=== PATIENT | female | born 1950 | race African-American/Black ===

== ENCOUNTER 2018-10-23 08:25 | Emergency (ER) | payer OTHER ==
[~2018-10-23] VITALS: Ht 167.6 cm; Wt 73.9 kg
[~2018-10-23 08:25] MED LIST: ASPI81EC98 PO; BENA20TA PO; HYDR-2729 PO; METO50TE2 PO; VALS320T2 PO
[2018-10-23 08:40] VITALS: BP 176/10
[2018-10-23] MEDS ORDERED: LIDOCAINE VISCOUS 2% 20 ML UDC PO ONE (08:50)
[2018-10-23 09:00] VITALS: BP 164/97
== END 2018-10-23 09:00 | disposition home or self-care (01) ==
LOC: MED 08:25
DX: G89.29 Other chronic pain (principal); K08.89 Other specified disorders of teeth and supporting structures; I10 Essential (primary) hypertension; E78.5 Hyperlipidemia, unspecified; Z79.82 Long term (current) use of aspirin; Z79.899 Other long term (current) drug therapy; Z76.0 Encounter for issue of repeat prescription
CPT/HCPCS: 99283

== ENCOUNTER 2018-12-21 13:50 | Emergency (ER) | payer OTHER ==
[~2018-12-21] VITALS: Ht 167.6 cm; Wt 72.1 kg
[2018-12-21 14:02] VITALS: BP 165/86
--- NOTE | 2018-12-21 14:39 | NUR ---
PATIENT PRESENTS TO ED WITH PT STATES HER PMD INSTRUCTED HER TO COME TO ER FOR FURTHER EVAL 2 TO CONTINUOUS PAIN---PT IS OUT OF NORCO AND REQUIRES A REFILL AMBULATORY WITH STEADY GAIT, DENIES RECENT INJURY . DENIES N/V/D; SKIN IS PINK/WARM/DRY; AAOX4 WITH EVEN AND STEADY GAIT; LUNGS CLEAR BL; HR EVEN AND REGULAR; PT DENIES ANY FEVER, CP, SOB, OR COUGH AT THIS TIME; PATIENT STATES PAIN OF 10/10 AT THIS TIME; VSS; PATIENT POSITIONED FOR COMFORT; HOB ELEVATED; BEDRAILS UP X2; BED DOWN. ER MD MADE AWARE OF PT STATUS.
[2018-12-21] MEDS ORDERED: KETOROLAC 60 MG/2 ML VIAL IM ONE (14:40)
[2018-12-21] MEDS ORDERED: DEXAMETHASONE 10 MG/ML VIAL IM ONE (14:40)
[2018-12-21 15:41] VITALS: BP 137/82
--- NOTE | 2018-12-21 15:41 | NUR ---
Note dungone in EDM - 12/21/18 at 1541 by PIOTR Patient discharged with v/s stable. Written and verbal after care instructions given and explained. Patient alert, oriented and verbalized understanding of instructions. [g ED.DCMODE] with [g ED.D/CMODE]. All questions addressed prior to discharge. ID band removed. Patient advised to follow up with PMD. Rx of [] given. Patient educated on indication of medication including possible reaction and side effects. Opportunity to ask questions provided and answered.
== END 2018-12-21 15:41 | disposition home or self-care (01) ==
LOC: MED 13:50
DX: M13.812 Other specified arthritis, left shoulder (principal); M13.811 Other specified arthritis, right shoulder; M13.852 Other specified arthritis, left hip; M13.851 Other specified arthritis, right hip; I10 Essential (primary) hypertension; Z79.1 Long term (current) use of non-steroidal anti-inflammatories (NSAID)
CPT/HCPCS: 96372; 99283; J1100; J1885

== ENCOUNTER 2019-04-27 16:53 | Emergency (ER) | payer OTHER ==
[~2019-04-27] VITALS: Ht 170.2 cm; Wt 73.9 kg
[2019-04-27 17:05] VITALS: BP 160/73
--- NOTE | 2019-04-27 17:12 | NUR ---
PT USES WALKER TO AMB TO ER LOBBY. PT AA0X4. RR EVEN AND UNLABORED.
--- NOTE | 2019-04-27 17:20 | NUR ---
PT BIB SELF IWTH C/O WORSENING HIP PAIN RADIATING TO BACK.GETS WORSE WHILE SHE WALKS AND U[HAM BENDING. DENIES INJURY. PAIN 07/28. PT AA0X4. AMBULATES WITH HELP OF THE WALKER. STATES WAS BEDBOUND BEFORE DUE TO CHRONIC ARTHIRITS PAIN. PMH- ARTHRITIS, HTN RX- CANT RECALL NAMES. STATES MEDS HAVE CHANGES SINCE LAST VISIT
--- NOTE | 2019-04-27 17:21 | NUR ---
PATIENT AMBULATED TO ER BED 2
[2019-04-27] MEDS ORDERED: MORPHINE SULFATE 4 MG/ML SYR IM ONE (17:55)
[2019-04-27] MEDS ORDERED: KETOROLAC 30 MG/ML VIAL IM ONE (17:55)
[2019-04-27 18:30] VITALS: BP 142/67
--- NOTE | 2019-04-27 18:30 | NUR ---
Patient discharged with v/s stable. Written and verbal after care instructions given and explained. Patient alert, oriented and verbalized understanding of instructions. Ambulatory with steady gait. All questions addressed prior to discharge. ID band removed. Patient advised to follow up with PMD. Rx of CLINORIL given. Patient educated on indication of medication including possible reaction and side effects. Opportunity to ask questions provided and answered.
== END 2019-04-27 18:30 | disposition home or self-care (01) ==
LOC: MED 16:53
DX: M16.0 Bilateral primary osteoarthritis of hip (principal); Z76.0 Encounter for issue of repeat prescription; I10 Essential (primary) hypertension; Z79.82 Long term (current) use of aspirin; Z79.899 Other long term (current) drug therapy
CPT/HCPCS: 96372; 99283; J1885; J2270

== ENCOUNTER 2019-05-22 08:38 | Emergency (ER) | payer OTHER ==
[~2019-05-22] VITALS: Ht 170.2 cm; Wt 72.6 kg
[2019-05-22 08:49] VITALS: BP 170/83
[2019-05-22] MEDS ORDERED: KETOROLAC 30 MG/ML VIAL IM ONE (09:40)
[2019-05-22] MEDS ORDERED: predniSONE 20 MG TAB PO ONE (09:40)
[2019-05-22 10:12] VITALS: BP 149/65
== END 2019-05-22 10:12 | disposition home or self-care (01) ==
LOC: MED 08:38
DX: M19.90 Unspecified osteoarthritis, unspecified site (principal); I10 Essential (primary) hypertension; Z79.899 Other long term (current) drug therapy; Z79.82 Long term (current) use of aspirin
CPT/HCPCS: 96372; 99283; J1885; J7512

== ENCOUNTER 2020-07-17 09:24 | Emergency (ER) | payer OTHER ==
[~2020-07-17] VITALS: Ht 170.2 cm; Wt 72.6 kg
[2020-07-17 09:29] VITALS: BP 183/103
--- NOTE | 2020-07-17 09:50 | NUR ---
70 YEAR OLD FEMALE COMPLAINS OF CHRONIC RIGHT LEG AND HIP PAIN. PT STATES THAT IT FEELS WORSE TODAY AND THE PAIN GOES AWAY WHEN SHE GETS HER SHOT FOR PAIN MEDICATION. PT STATES MORE DIFFICULTY WALKING WITH WALKER DUE TO PAIN. PT AOX4, BREATHING EVEN AND UNLABORED, SKIN WARM AND DRY. BED IN LOWEST POSITION, LOCKED, BED RAIL UPX1. PMH - HTN ALLERGIES - NKA
[2020-07-17] MEDS ORDERED: predniSONE 20 MG TAB PO ONE (09:55)
[2020-07-17] MEDS ORDERED: KETOROLAC 60 MG/2 ML VIAL IM ONE (09:55)
--- NOTE | 2020-07-17 10:50 | NUR ---
PT ALERT AND AWAKE, BREATHING EVEN AND UNLABORED
[2020-07-17 11:50] VITALS: BP 192/91
--- NOTE | 2020-07-17 11:50 | NUR ---
Patient discharged with v/s stable. Written and verbal after care instructions about arthritis given and explained. Patient alert, oriented and verbalized understanding of instructions. Ambulatory with steady gait. All questions addressed prior to discharge. ID band removed. Patient advised to follow up with PMD. Rx of medrol and ibuprofen given. Patient educated on indication of medication including possible reaction and side effects. Opportunity to ask questions provided and answered.
== END 2020-07-17 11:50 | disposition home or self-care (01) ==
LOC: MED 09:24
DX: M19.90 Unspecified osteoarthritis, unspecified site (principal); I10 Essential (primary) hypertension; Z79.899 Other long term (current) drug therapy
CPT/HCPCS: 96372; 99283; J1885; J7512

== ENCOUNTER 2021-02-28 08:25 | Emergency (ER) | payer OTHER ==
[~2021-02-28] VITALS: Ht 170.2 cm; Wt 65.3 kg
[~2021-02-28 08:25] MED LIST changes: +RIVA20TA PO; +SULF-58 PO
[2021-02-28 08:27] VITALS: BP 192/61
--- NOTE | 2021-02-28 08:32 | NUR ---
Patient ambulated to bed 12 with steady/even gait.
--- NOTE | 2021-02-28 08:40 | NUR ---
71 y/o F brought in from home with c/c bilateral groin pain. Patient reports arthritis flare-up 2 weeks ago, worsened this morning when she woke up. Patient reports the pain worsens with cold weather and ambulating. Patient presents A&Ox4, ambulatory with walker, and reports pain 10/10, sharp/intermittent, non-radiating. Patient also repotrs associated bilateral hip pain. Patient states she normally takes [place] 10mg, however, ran out of her prescription 1 week ago. Patient denies any medications or treatmen tprior to arrival. Pt denies fever, chills, SOB, chest pain, other extremity pain. Pt placed onto cardiac/vascular sonographer; respirations even/unlabored. Bed locked in lowest position, side rails x 1, call light in reach. Dyer provided. PMH: Arthritis, HTN, HLD Meds: Xarelto, lisinopril, atenolol, lipitor NKA Sx: Denies
--- NOTE | 2021-02-28 08:50 | NUR ---
Dr. Brody is evaluating patienta t bedside.
[2021-02-28] MEDS ORDERED: KETOROLAC 15 MG/ML VIAL IM ONE (08:55)
[2021-02-28] MEDS ORDERED: HYDROcodone/APAP 10/325 MG 1 TAB TAB PO ONE (08:55)
--- NOTE | 2021-02-28 09:33 | NUR ---
Patient reports positive relief after medication administration; reports pain 0/10 at this time. States she is ready to go. Dr. Brody made aware.
[2021-02-28 09:37] VITALS: BP 176/67
--- NOTE | 2021-02-28 09:37 | NUR ---
Patient discharged with v/s stable. Written and verbal after care instructions given and explained. Patient verbalized understanding. Ambulatory by walker with steady gait. All questions addressed prior to discharge. Advised to follow up with PMD.
== END 2021-02-28 09:37 | disposition home or self-care (01) ==
LOC: MED 08:25
DX: M25.551 Pain in right hip (principal); M25.552 Pain in left hip; I10 Essential (primary) hypertension; Z79.899 Other long term (current) drug therapy
CPT/HCPCS: 96372; 99283; J1885

== ENCOUNTER 2021-03-04 09:29 | Emergency (ER) | payer OTHER ==
[~2021-03-04] VITALS: Ht 170.2 cm; Wt 65.3 kg
[2021-03-04 09:36] VITALS: BP 215/92
[2021-03-04] MEDS ORDERED: HYDROcodone/APAP 10/325 MG 1 TAB TAB PO SCH (09:55)
[2021-03-04] MEDS ORDERED: KETOROLAC 15 MG/ML VIAL IM ONE (09:55)
[2021-03-04 11:33] VITALS: BP 170/81
== END 2021-03-04 11:27 | disposition home or self-care (01) ==
LOC: MED 09:29
DX: G89.29 Other chronic pain (principal); M13.852 Other specified arthritis, left hip; M13.851 Other specified arthritis, right hip; E78.5 Hyperlipidemia, unspecified; I10 Essential (primary) hypertension; Z79.899 Other long term (current) drug therapy; Z79.82 Long term (current) use of aspirin
CPT/HCPCS: 73521; 96372; 99283; J1885

== ENCOUNTER 2021-03-08 20:39 | Emergency (ER) | payer OTHER ==
[~2021-03-08] VITALS: Ht 170.2 cm; Wt 60.8 kg
[2021-03-08 20:46] VITALS: BP 142/79
--- NOTE | 2021-03-08 21:01 | NUR ---
AMBULATORY TO RESTROOM
--- NOTE | 2021-03-08 21:10 | NUR ---
71/F BIB SELF FOR C/O RUQ PAIN X 1 DAY S/P "EATING SOMETHING BAD." DENIES N/V/D, PAINFUL URINATION. STATES FEELS CONSTIPATED. UPON ASSESSMENT PT AAOX4, AMBULATORY, ABLE TO MAKE NEEDS KNOWN. ABDOMEN SOFT AND NON-TENDER. SKIN IS WARM/DRY/INTACT. SAFETY MEASURES IN PLACE. WILL CONTINUE TO MONITOR. PMH: HTN NKA
--- NOTE | 2021-03-08 21:15 | NUR ---
DR. MCCAULEY AT BEDSIDE EXAMINING PATIENT
--- NOTE | 2021-03-08 21:35 | NUR ---
US AT BEDSIDE
[2021-03-08] MEDS: ONDANSETRON 4 MG/2 ML VIAL IVP ONE (21:43)
[2021-03-08] MEDS: MORPHINE SULFATE 4 MG/ML SYR IVP ONE (21:43)
--- NOTE | 2021-03-08 21:45 | NUR ---
URINE SAMPLE COLLECTED AND SENT TO LAB
[2021-03-08 21:52] LABS: APPEARANCE,URINE CLEAR (CLEAR); BILIRUBIN,URINE NEGATIVE (NEGATIVE); BLOOD, URINE TRACE-I (NEGATIVE); COLOR,URINE YELLOW (YELLOW); LEUKOCYTE ESTERASE ,URINE NEGATIVE (NEGATIVE); NITRITE, URINE NEGATIVE (NEGATIVE); UGLUCOSE NEGATIVE (NEGATIVE)
[2021-03-08 22:06] LABS: RBC,URINE 0-5 /HPF (0-5); WBC,URINE 0-5 /HPF (0-5)
[2021-03-08 22:11] LABS: BASOPHILS # (AUTO) 0.1 K/uL (0.00-0.22); EOSINOPHILS # (AUTO) 0.3 K/uL (0-0.4); EOSINOPHILS % (AUTO) 3.7 % (0.0-4.0); HEMOGLOBIN 11.7 g/dL (12.0-16.0); LYMPHOCYTES # (AUTO) 0.8 K/uL (2.5-16.5); LYMPHOCYTES % (AUTO) 10.6 % (20.5-51.1); MEAN CORPUSCULAR HEMOGLOBIN 29 pg (27-31); MEAN CORPUSCULAR HGB CONC 33 g/dL (33-37); MEAN CORPUSCULAR VOLUME 89.7 fL (80-94); MONOCYTES # (AUTO) 0.6 K/uL (0.8-1.0); NEUTROPHILS # (AUTO) 5.9 K/uL (1.8-7.7); NEUTROPHILS % (AUTO) 76.7 % (42.2-75.2); PLATELET COUNT (AUTO) 302 K/uL (140-450); RED BLOOD CELL COUNT(AUTO) 4.01 MIL/uL (4.20-5.40); RED CELL DISTRIBUTION WIDTH 15.8 % (11.6-13.7); WHITE BLOOD COUNT (AUTO) 7.7 K/uL (4.8-10.8)
[2021-03-08 22:20] VITALS: BP 141/64
--- NOTE | 2021-03-08 22:21 | NUR ---
PT RESTING. VITAL SIGNS STABLE AT THIS TIME. PT VERBALIZED 2/10 ABDOMINAL PAIN AT THIS TIME. NO REQUESTS MADE, PT KEPT COMFORTABLE, SAFETY MEASURES IN PLACE, WILL CONTINUE TO MONITOR.
[2021-03-08 22:24] LABS: ALBUMIN 3.6 g/dL (3.4-5.0); ANION GAP 13.5 (8-16); ASPARTATE AMINOTRANSFERASE 19 U/L (15-37); CARBON DIOXIDE 28.5 mmol/L (21-32); CHLORIDE 102 mmol/L (98-107); CREATININE 2.4 mg/dL (0.6-1.3); GLUCOSE 113 mg/dL (74-106); LIPASE 37 U/L (73-393); SODIUM SERUM 140 mmol/L (136-145); TOTAL BILIRUBIN 1.1 mg/dL (0.0-1.0); UREA NITROGEN, BLOOD 35 mg/dL (7-18)
[2021-03-08] MEDS ORDERED: ONDA8TAB87 PO (22:37)
[2021-03-08] MEDS ORDERED: IBUP-2213 PO (22:37)
[2021-03-08] MEDS ORDERED: ACET-8386 PO (22:37)
--- NOTE | 2021-03-08 22:55 | NUR ---
Patient discharged with v/s stable. Written and verbal after care instructions given and explained. Patient alert, oriented and verbalized understanding of instructions. Ambulatory with to car. All questions addressed prior to discharge. ID band removed AND IV ACCESS REMOVED. Patient advised to follow up with PMD. Rx of NORCO, MOTRIN, ZOFRAN given. Patient educated on indication of medication including possible reaction and side effects. Opportunity to ask questions provided and answered.
== END 2021-03-08 22:55 | disposition home or self-care (01) ==
LOC: MED 20:39
DX: R10.11 Right upper quadrant pain (principal); I10 Essential (primary) hypertension; Z79.899 Other long term (current) drug therapy
CPT/HCPCS: 36415; 76705; 80053; 81001; 83690; 85025; 96374; 96375; 99284; J2270; J2405

== ENCOUNTER 2021-03-12 19:10 | Inpatient (IN) | payer OTHER, SELFPAY ==
[~2021-03-12] VITALS: Ht 170.2 cm; Wt 58.5 kg
[~2021-03-12 19:10] MED LIST changes: +ACET-8386 PO; +IBUP-2213 PO; +ONDA8TAB87 PO
[2021-03-12 19:39] VITALS: BP 140/93
[2021-03-12] MEDS ORDERED: NACL 0.9% 1,000 ML IV ONE (20:35)
[2021-03-12] MEDS ORDERED: ONDANSETRON 4 MG/2 ML VIAL IVP ONE (20:35)
[2021-03-12] MEDS ORDERED: MORPHINE SULFATE 4 MG/ML SYR IVP ONE (20:35)
[2021-03-12 21:08] LABS: BASOPHILS # (AUTO) 0.1 K/uL (0.00-0.22); BASOPHILS % (AUTO) 0.6 % (0.0-2.0); EOSINOPHILS % (AUTO) 0.2 % (0.0-4.0); HEMATOCRIT 36.6 % (36-48); HEMOGLOBIN 12.2 g/dL (12.0-16.0); LYMPHOCYTES # (AUTO) 0.9 K/uL (2.5-16.5); LYMPHOCYTES % (AUTO) 8.5 % (20.5-51.1); MEAN CORPUSCULAR HEMOGLOBIN 29 pg (27-31); MEAN CORPUSCULAR HGB CONC 33 g/dL (33-37); MEAN CORPUSCULAR VOLUME 88.1 fL (80-94); MONOCYTES # (AUTO) 1.2 K/uL (0.8-1.0); MONOCYTES % (AUTO) 11.1 % (1.7-9.3); NEUTROPHILS # (AUTO) 8.6 K/uL (1.8-7.7); NEUTROPHILS % (AUTO) 79.6 % (42.2-75.2); PLATELET COUNT (AUTO) 368 K/uL (140-450); RED BLOOD CELL COUNT(AUTO) 4.16 MIL/uL (4.20-5.40); RED CELL DISTRIBUTION WIDTH 15.9 % (11.6-13.7); WHITE BLOOD COUNT (AUTO) 10.8 K/uL (4.8-10.8)
[2021-03-12 21:21] LABS: APPEARANCE,URINE CLEAR (CLEAR); BILIRUBIN,URINE 2+ (NEGATIVE); BLOOD, URINE TRACE-I (NEGATIVE); COLOR,URINE YELLOW (YELLOW); LEUKOCYTE ESTERASE ,URINE NEGATIVE (NEGATIVE); NITRITE, URINE NEGATIVE (NEGATIVE); RBC,URINE 0-5 /HPF (0-5); UGLUCOSE NEGATIVE (NEGATIVE)
[2021-03-12] MEDS ORDERED: LORazepam 2 MG/ML VIAL IVP ONE (21:50)
[2021-03-12 22:22] LABS: ALBUMIN 3.6 g/dL (3.4-5.0); ANION GAP 15.6 (8-16); ASPARTATE AMINOTRANSFERASE 28 U/L (15-37); CARBON DIOXIDE 28.1 mmol/L (21-32); CHLORIDE 97 mmol/L (98-107); CREATININE 2.7 mg/dL (0.6-1.3); GLUCOSE 150 mg/dL (74-106); POTASSIUM 4.7 mmol/L (3.5-5.1); SODIUM SERUM 136 mmol/L (136-145); TOTAL BILIRUBIN 0.5 mg/dL (0.0-1.0); UREA NITROGEN, BLOOD 47 mg/dL (7-18)
[2021-03-12 22:23] LABS: LIPASE 19 U/L (73-393)
[2021-03-12] MEDS ORDERED: ASPIRIN 600 MG SUPP RC ONE (23:00)
[2021-03-13] MEDS ORDERED: ONDANSETRON 4 MG/2 ML VIAL IM/IVP PRN (00:45)
[2021-03-13] MEDS ORDERED: ACETAMINOPHEN 325 MG TAB PO PRN (00:45)
[2021-03-13] MEDS ORDERED: guaiFENesin DM 200/20 MG-10 ML 10 ML UDC PO PRN (00:45)
[2021-03-13] MEDS ORDERED: DOCUSATE SODIUM 100 MG GELCAP PO PRN (00:45)
[2021-03-13] MEDS ORDERED: HEPARIN PER PHARMACY MC PRN (00:45)
[2021-03-13] MEDS ORDERED: hePARIN / DEXT 5% PREMIX 250 ML IV PRN (00:45)
[2021-03-13] MEDS ORDERED: cefTRIAXone 1,000 MG VIAL ONE (01:05)
[2021-03-13] MEDS: METOPROLOL 5 MG/5 ML VIAL IVP SCH ×3 (01:19→20:53)
[2021-03-13 01:45] VITALS: BP 165/77
[2021-03-13 01:47] LABS: CHOL/HDL RATIO 3.2 (1-4.5); FREE T4 (FREE THYROXINE) 1.09 ng/dL (0.76-1.46); MAGNESIUM 2.2 mg/dL (1.8-2.4); PHOSPHORUS 4.7 mg/dL (2.5-4.9); THYROID STIMULATING HORMONE 0.57 uIU/mL (0.34-3.74)
[2021-03-13 01:49] LABS: BARBITURATE, URINE NEGATIVE ng/ml (NEG <=200); BENZODIAZEPINE, URINE NEGATIVE ng/mL (NEG <=200); CANNABINOID, URINE NEGATIVE ng/mL (NEG <=50); COCAINE, URINE NEGATIVE ng/mL (NEG <=300); OPIATE, URINE POSITIVE ng/mL (NEG <=2000); PHENCYCLIDINE SCREEN,URINE NEGATIVE ng/mL (NEG <=25)
[2021-03-13 02:17] LABS: PROTHROMBIN TIME 10.1 secs (10.8-13.4)
[2021-03-13] MEDS: MORPHINE SULFATE 2 MG/ML SYR IVP PRN ×4 (02:26→20:53)
[2021-03-13] MEDS: DEXT 5% / NACL 0.9% 1,000 ML IV SCH ×3 (03:29→20:46)
[2021-03-13 04:00] VITALS: BP 156/78
[2021-03-13 08:00] VITALS: BP 140/74
[2021-03-13] MEDS: PANTOPRAZOLE 40 MG INJ VIAL IVP SCH (08:57)
[2021-03-13 12:00] VITALS: BP 138/74
[2021-03-13] MEDS: hePARIN / DEXT 5% PREMIX 250 ML IV SCH ×3 (12:45→18:23)
[2021-03-13 16:00] VITALS: BP 127/79
[2021-03-13 20:00] VITALS: BP 142/82
[2021-03-13] MEDS: HYDROcodone/APAP 7.5/325 MG 1 TAB PO PRN (22:05)
[2021-03-13] MEDS ORDERED: HYDROmorphone 1 MG/ML AMP IVP SCH (23:40)
[2021-03-14] VITALS: BP 159/84
[2021-03-14] MEDS: hePARIN / DEXT 5% PREMIX 250 ML IV SCH ×2 (02:41→06:17)
[2021-03-14] MEDS: MORPHINE SULFATE 2 MG/ML SYR IVP PRN ×3 (03:31→20:27)
[2021-03-14 04:00] VITALS: BP 176/96
[2021-03-14 06:01] LABS: BASOPHILS % (AUTO) 0.3 % (0.0-2.0); EOSINOPHILS # (AUTO) 0.3 K/uL (0-0.4); EOSINOPHILS % (AUTO) 3.7 % (0.0-4.0); LYMPHOCYTES % (AUTO) 22.1 % (20.5-51.1); MEAN CORPUSCULAR HEMOGLOBIN 29 pg (27-31); MEAN CORPUSCULAR HGB CONC 32 g/dL (33-37); MEAN CORPUSCULAR VOLUME 90.6 fL (80-94); MONOCYTES # (AUTO) 1.5 K/uL (0.8-1.0); NEUTROPHILS % (AUTO) 56.9 % (42.2-75.2); PLATELET COUNT (AUTO) 296 K/uL (140-450); RED BLOOD CELL COUNT(AUTO) 3.42 MIL/uL (4.20-5.40); RED CELL DISTRIBUTION WIDTH 15.6 % (11.6-13.7); WHITE BLOOD COUNT (AUTO) 8.8 K/uL (4.8-10.8)
[2021-03-14] MEDS: HYDROcodone/APAP 7.5/325 MG 1 TAB PO PRN (06:41)
[2021-03-14 07:01] LABS: T4 (THYROXINE) 0.6 ug/dL (4.5 - 12.0)
[2021-03-14 07:02] LABS: ANION GAP 9.6 (8-16); CARBON DIOXIDE 28.6 mmol/L (21-32); CHLORIDE 110 mmol/L (98-107); CREATININE 1.6 mg/dL (0.6-1.3); GLUCOSE 116 mg/dL (74-106); POTASSIUM 4.2 mmol/L (3.5-5.1); SODIUM SERUM 144 mmol/L (136-145); UREA NITROGEN, BLOOD 27 mg/dL (7-18)
[2021-03-14 08:00] VITALS: BP 194/90
[2021-03-14] MEDS: PANTOPRAZOLE 40 MG INJ VIAL IVP SCH (08:26)
[2021-03-14] MEDS: METOPROLOL 5 MG/5 ML VIAL IVP SCH ×4 (08:27→21:56)
[2021-03-14] MEDS: hydrALAZINE 20 MG/ML VIAL IVP PRN ×2 (08:42→15:15)
[2021-03-14] MEDS: HYDROmorphone 1 MG/ML AMP IVP PRN ×3 (09:22→22:36)
[2021-03-14 12:00] VITALS: BP 142/91
[2021-03-14] MEDS: DEXT 5% / NACL 0.9% 1,000 ML IV SCH (13:05)
[2021-03-14 16:00] VITALS: BP 187/78
[2021-03-14] MEDS ORDERED: HYDROmorphone 1 MG/ML AMP IVP SCH (17:05)
[2021-03-14] MEDS ORDERED: hydrALAZINE 20 MG/ML VIAL IVP SCH (17:05)
[2021-03-14 20:00] VITALS: BP 188/88
[2021-03-14] MEDS: ZOLPIDEM 5 MG TAB PO PRN (20:40)
[2021-03-14] MEDS ORDERED: DILTIAZEM 30 MG TAB PO SCH (23:40)
[2021-03-14] MEDS ORDERED: LORazepam 2 MG/ML VIAL IVP SCH (23:40)
[2021-03-14] MEDS ORDERED: DILTIAZEM 30 MG TAB ONE (23:45)
[2021-03-14] MEDS ORDERED: LORazepam 2 MG/ML VIAL ONE (23:45)
[2021-03-15] VITALS (8 sets, daily range): BP systolic 157–188; BP diastolic 65–93
[2021-03-15] MEDS: hydrALAZINE 20 MG/ML VIAL IVP PRN ×4 (01:44→22:42)
[2021-03-15] MEDS: DEXT 5% / NACL 0.9% 1,000 ML IV SCH ×2 (02:31→16:25)
[2021-03-15 05:40] LABS: ANION GAP 11.7 (8-16); CARBON DIOXIDE 24.5 mmol/L (21-32); CHLORIDE 111 mmol/L (98-107); CREATININE 1.1 mg/dL (0.6-1.3); GLUCOSE 126 mg/dL (74-106); POTASSIUM 3.2 mmol/L (3.5-5.1); SODIUM SERUM 144 mmol/L (136-145); UREA NITROGEN, BLOOD 11 mg/dL (7-18)
[2021-03-15 06:15] LABS: BASOPHILS % (AUTO) 0.3 % (0.0-2.0); EOSINOPHILS # (AUTO) 0.1 K/uL (0-0.4); EOSINOPHILS % (AUTO) 1.2 % (0.0-4.0); HEMATOCRIT 34.4 % (36-48); HEMOGLOBIN 11.3 g/dL (12.0-16.0); LYMPHOCYTES # (AUTO) 1.2 K/uL (2.5-16.5); LYMPHOCYTES % (AUTO) 14.6 % (20.5-51.1); MEAN CORPUSCULAR HEMOGLOBIN 30 pg (27-31); MEAN CORPUSCULAR HGB CONC 33 g/dL (33-37); MEAN CORPUSCULAR VOLUME 90.7 fL (80-94); MONOCYTES # (AUTO) 1.1 K/uL (0.8-1.0); MONOCYTES % (AUTO) 12.5 % (1.7-9.3); NEUTROPHILS % (AUTO) 71.4 % (42.2-75.2); PLATELET COUNT (AUTO) 380 K/uL (140-450); RED BLOOD CELL COUNT(AUTO) 3.79 MIL/uL (4.20-5.40); RED CELL DISTRIBUTION WIDTH 15.9 % (11.6-13.7); WHITE BLOOD COUNT (AUTO) 8.5 K/uL (4.8-10.8)
[2021-03-15] MEDS: HYDROmorphone 1 MG/ML AMP IVP PRN ×3 (07:00→20:41)
[2021-03-15] MEDS: METOPROLOL 5 MG/5 ML VIAL IVP SCH (08:50)
[2021-03-15] MEDS: PANTOPRAZOLE 40 MG INJ VIAL IVP SCH (08:51)
[2021-03-15] MEDS ORDERED: KCL 20 MEQ/WATER INJ PREMIX 200 ML IV SCH (09:00)
[2021-03-15] MEDS: MORPHINE SULFATE 2 MG/ML SYR IVP PRN ×3 (11:20→23:43)
[2021-03-15] MEDS ORDERED: RIVAROXABAN 10 MG TAB PO SCH (11:30)
[2021-03-15] MEDS: POTASSIUM CHLORIDE 40 MEQ, LIDOCAINE MPF 1% 25 MG in NACL 0.9% 250 ML IV PRN (11:31)
[2021-03-15] MEDS ORDERED: METOPROLOL 25 MG TAB PO SCH (13:01)
[2021-03-15] MEDS ORDERED: lisinopriL 20 MG TAB PO SCH (13:02)
[2021-03-15] MEDS: METOPROLOL 25 MG TAB PO SCH (20:42)
[2021-03-16] VITALS: BP 161/71
[2021-03-16] MEDS: ZOLPIDEM 5 MG TAB PO PRN (00:38)
[2021-03-16] MEDS: ENALAPRILAT 2.5 MG/2 ML VIAL IVP PRN (01:37)
[2021-03-16] MEDS: HYDROmorphone 1 MG/ML AMP IVP PRN ×2 (02:53→08:50)
[2021-03-16 04:00] VITALS: BP 157/73
[2021-03-16] MEDS: MORPHINE SULFATE 2 MG/ML SYR IVP PRN ×3 (05:43→21:33)
[2021-03-16 07:19] LABS: BASOPHILS % (AUTO) 0.5 % (0.0-2.0); EOSINOPHILS # (AUTO) 0.3 K/uL (0-0.4); EOSINOPHILS % (AUTO) 3.5 % (0.0-4.0); HEMATOCRIT 29.1 % (36-48); HEMOGLOBIN 9.7 g/dL (12.0-16.0); LYMPHOCYTES # (AUTO) 1.4 K/uL (2.5-16.5); LYMPHOCYTES % (AUTO) 19.3 % (20.5-51.1); MEAN CORPUSCULAR HEMOGLOBIN 30 pg (27-31); MEAN CORPUSCULAR HGB CONC 33 g/dL (33-37); MEAN CORPUSCULAR VOLUME 88.5 fL (80-94); MONOCYTES # (AUTO) 0.9 K/uL (0.8-1.0); MONOCYTES % (AUTO) 12.1 % (1.7-9.3); NEUTROPHILS # (AUTO) 4.7 K/uL (1.8-7.7); NEUTROPHILS % (AUTO) 64.6 % (42.2-75.2); PLATELET COUNT (AUTO) 335 K/uL (140-450); RED BLOOD CELL COUNT(AUTO) 3.28 MIL/uL (4.20-5.40); RED CELL DISTRIBUTION WIDTH 15.5 % (11.6-13.7); WHITE BLOOD COUNT (AUTO) 7.3 K/uL (4.8-10.8)
[2021-03-16 07:29] LABS: ANION GAP 10.1 (8-16); CARBON DIOXIDE 23.3 mmol/L (21-32); CHLORIDE 109 mmol/L (98-107); CREATININE 1.1 mg/dL (0.6-1.3); GLUCOSE 100 mg/dL (74-106); POTASSIUM 3.4 mmol/L (3.5-5.1); SODIUM SERUM 139 mmol/L (136-145); UREA NITROGEN, BLOOD 8 mg/dL (7-18)
[2021-03-16 08:00] VITALS: BP_SYST 163; BP_SYST 175; BP_DIAS 76; BP_DIAS 84
[2021-03-16] MEDS: METOPROLOL 25 MG TAB PO SCH ×2 (08:48→20:24)
[2021-03-16] MEDS: lisinopriL 20 MG TAB PO SCH (08:49)
[2021-03-16] MEDS: PANTOPRAZOLE 40 MG INJ VIAL IVP SCH (08:49)
[2021-03-16] MEDS ORDERED: DICYCLOMINE HCL LIQUID 20 MG, ALUMINUM HYD/MAG/SIMETHICONE 30 ML, LIDOCAINE VISCOUS 2% ... PO SCH ×3 (11:00)
[2021-03-16] MEDS: POTASSIUM CHLORIDE 40 MEQ, LIDOCAINE MPF 1% 25 MG in NACL 0.9% 250 ML IV PRN (11:09)
[2021-03-16] MEDS ORDERED: LIDOCAINE VISCOUS 2% 20 ML UDC ONE (11:10)
[2021-03-16] MEDS ORDERED: ALUMINUM HYD/MAG/SIMETHICONE 30 ML UDC ONE (11:10)
[2021-03-16] MEDS ORDERED: DICYCLOMINE HCL LIQUID 10 MG/5 ML UDC ONE (11:10)
[2021-03-16 12:00] VITALS: BP 175/84
[2021-03-16] MEDS: KETOROLAC 15 MG/ML VIAL IVP PRN ×2 (12:29→18:58)
[2021-03-16] MEDS: hydrALAZINE 20 MG/ML VIAL IVP PRN ×2 (12:48→20:23)
[2021-03-16 16:00] VITALS: BP 131/86
[2021-03-16] MEDS: DEXT 5% / NACL 0.9% 1,000 ML IV SCH ×3 (16:54→23:35)
[2021-03-16] MEDS: RIVAROXABAN 10 MG TAB PO SCH (17:30)
[2021-03-16 20:00] VITALS: BP 188/83
[2021-03-17] VITALS: BP 150/77
[2021-03-17] MEDS: ZOLPIDEM 5 MG TAB PO PRN (01:11)
[2021-03-17] MEDS: KETOROLAC 15 MG/ML VIAL IVP PRN ×2 (03:15→12:57)
[2021-03-17 04:00] VITALS: BP 181/83
[2021-03-17] MEDS: MORPHINE SULFATE 2 MG/ML SYR IVP PRN ×2 (05:18→09:52)
[2021-03-17 07:08] LABS: ANION GAP 13.9 (8-16); CARBON DIOXIDE 24.1 mmol/L (21-32); CHLORIDE 108 mmol/L (98-107); CREATININE 1.3 mg/dL (0.6-1.3); GLUCOSE 93 mg/dL (74-106); SODIUM SERUM 142 mmol/L (136-145); UREA NITROGEN, BLOOD 11 mg/dL (7-18)
[2021-03-17 07:11] LABS: BASOPHILS % (AUTO) 0.3 % (0.0-2.0); EOSINOPHILS # (AUTO) 0.2 K/uL (0-0.4); EOSINOPHILS % (AUTO) 2.8 % (0.0-4.0); HEMATOCRIT 30.6 % (36-48); HEMOGLOBIN 10.1 g/dL (12.0-16.0); LYMPHOCYTES # (AUTO) 1.1 K/uL (2.5-16.5); LYMPHOCYTES % (AUTO) 16.1 % (20.5-51.1); MEAN CORPUSCULAR HEMOGLOBIN 30 pg (27-31); MEAN CORPUSCULAR HGB CONC 33 g/dL (33-37); MEAN CORPUSCULAR VOLUME 89.2 fL (80-94); MONOCYTES # (AUTO) 0.9 K/uL (0.8-1.0); MONOCYTES % (AUTO) 12.9 % (1.7-9.3); NEUTROPHILS # (AUTO) 4.6 K/uL (1.8-7.7); NEUTROPHILS % (AUTO) 67.9 % (42.2-75.2); PLATELET COUNT (AUTO) 389 K/uL (140-450); RED BLOOD CELL COUNT(AUTO) 3.43 MIL/uL (4.20-5.40); RED CELL DISTRIBUTION WIDTH 15.7 % (11.6-13.7); WHITE BLOOD COUNT (AUTO) 6.8 K/uL (4.8-10.8)
[2021-03-17 08:00] VITALS: BP 161/89
[2021-03-17] MEDS: PANTOPRAZOLE 40 MG INJ VIAL IVP SCH (09:49)
[2021-03-17] MEDS: hydrALAZINE 20 MG/ML VIAL IVP PRN (09:51)
[2021-03-17] MEDS: METOPROLOL 25 MG TAB PO SCH (09:52)
[2021-03-17] MEDS: lisinopriL 20 MG TAB PO SCH (09:52)
[2021-03-17 12:00] VITALS: BP 167/85
[2021-03-17] MEDS ORDERED: SIME80TA22 PO (12:32)
[2021-03-17] MEDS ORDERED: PSYL575P2 PO (12:32)
[2021-03-17] MEDS: ENALAPRILAT 2.5 MG/2 ML VIAL IVP PRN (13:00)
[2021-03-17] MEDS ORDERED: SIMETHICONE 80 MG TAB.CHEW PO SCH (13:00)
[2021-03-17] MEDS ORDERED: hydrALAZINE 20 MG/ML VIAL IVP PRN (13:10)
[2021-03-17] MEDS ORDERED: HYDROcodone/APAP 5/325 MG 1 TAB TAB PO PRN (14:25)
[2021-03-17] MEDS ORDERED: METOPROLOL 5 MG/5 ML VIAL IV ONE (15:15)
[2021-03-17] MEDS ORDERED: CLONIDINE HYDROCHLORIDE 0.1 MG TAB PO ONE (15:20)
[2021-03-17 17:07] VITALS: BP 155/84
[2021-03-17] MEDS: RIVAROXABAN 10 MG TAB PO SCH (17:08)
[2021-03-18] MEDS ORDERED: lisinopriL 20 MG TAB PO SCH (09:00)
== END 2021-03-17 17:35 | disposition home or self-care (01) | DRG 388 ==
LOC: MED 19:10 → MMU 03-13 00:33 → MTU 03-13 01:35
PROVIDERS: ADMIT Family Medicine; ATTEND Family Medicine
PROC: 0D9670Z Drainage of Stomach with Drainage Device, Via Natural or Artificial Opening (ICD-10-PCS; principal; 2021-03-12)
DX: K56.609 Unspecified intestinal obstruction, unspecified as to partial versus complete obstruction (principal); N17.0 Acute kidney failure with tubular necrosis; I21.A1 Myocardial infarction type 2; N39.0 Urinary tract infection, site not specified; I48.92 Unspecified atrial flutter; I50.30 Unspecified diastolic (congestive) heart failure; I13.0 Hypertensive heart and chronic kidney disease with heart failure and stage 1 through stage 4 chronic kidney disease, or unspecified chronic kidney disease; E78.5 Hyperlipidemia, unspecified; Z20.822 Contact with and (suspected) exposure to COVID-19; I48.91 Unspecified atrial fibrillation; I49.3 Ventricular premature depolarization; E86.0 Dehydration; R73.9 Hyperglycemia, unspecified; E87.6 Hypokalemia; N18.30 Chronic kidney disease, stage 3 unspecified; Z80.3 Family history of malignant neoplasm of breast; Z80.8 Family history of malignant neoplasm of other organs or systems; Z90.49 Acquired absence of other specified parts of digestive tract; Z90.710 Acquired absence of both cervix and uterus
CPT/HCPCS: 36415; 71045; 74018; 74250; 80048; 80053; 80305; 81001; 82150; 82948; 83036; 83690; 83735; 83880; 84100; 84436; 84439; 84443; 84479; 84484; 85025; 85610; 85730; 87081; 87086; 93005; 96361; 96365; 96375; 97112; 97116; 97163-GP; 97530; 99291; C9113; J0360; J0696; J1170; J1644; J1885; J2001; J2060; J2270; J2405; J3480; J3490; J7030; J7060

== ENCOUNTER 2021-04-13 08:47 | Emergency (ER) | payer OTHER ==
[~2021-04-13] VITALS: Ht 170.2 cm; Wt 62.1 kg
[~2021-04-13 08:47] MED LIST changes: -HYDR-2729 PO; -ONDA8TAB87 PO; +PSYL575P2 PO; -RIVA20TA PO; +SIME80TA22 PO; -SULF-58 PO; -VALS320T2 PO
[2021-04-13 08:55] VITALS: BP 166/92
--- NOTE | 2021-04-13 08:56 | NUR ---
Lucie rangel in [facility] - 04/13/21 at 0857 by SHIVA pt ambulated to bed 12.
--- NOTE | 2021-04-13 09:01 | NUR ---
PATIENT AMBUALTED TO ER BED 07
--- NOTE | 2021-04-13 09:02 | NUR ---
71 YEAR OLD FEMALE COMPLAINS OF BILATERAL HIP PAIN X 3 DAYS. PT DENIES TRAUMA OR FALLS. PT WALKS WITH EVEN AND STEADY GAIT. PT AOX4, BREATHING EVEN AND UNLABORED, SKIN WARM AND DRY. BED IN LOWEST POSITION, LOCKED, BED RAIL UPX1. PMH - HTN, ARTHRITIS ALLERGIES - NKA
[2021-04-13] MEDS ORDERED: KETOROLAC 15 MG/ML VIAL IM ONE (09:15)
[2021-04-13] MEDS ORDERED: HYDROcodone/APAP 5/325 MG 1 TAB TAB PO ONE (09:15)
[2021-04-13 10:15] VITALS: BP 156/90
--- NOTE | 2021-04-13 10:15 | NUR ---
Patient discharged with v/s stable. Written and verbal after care instructions about hip pain given and explained. Patient verbalized understanding. Ambulatory with steady gait. All questions addressed prior to discharge. Advised to follow up with PMD.
== END 2021-04-13 10:15 | disposition home or self-care (01) ==
LOC: MED 08:47
DX: M25.551 Pain in right hip (principal); M25.552 Pain in left hip; I10 Essential (primary) hypertension; Z79.899 Other long term (current) drug therapy; Z79.82 Long term (current) use of aspirin
CPT/HCPCS: 96372; 99283; J1885

== ENCOUNTER 2021-04-21 08:24 | Emergency (ER) | payer OTHER ==
[~2021-04-21] VITALS: Ht 170.2 cm; Wt 63.5 kg
[2021-04-21 08:38] VITALS: BP 184/91
[2021-04-21] MEDS ORDERED: KETOROLAC 15 MG/ML VIAL IM ONE (08:50)
[2021-04-21] MEDS ORDERED: HYDROcodone/APAP 5/325 MG 1 TAB TAB PO ONE (08:50)
--- NOTE | 2021-04-21 09:16 | NUR ---
71 YEAR OLD FEMALE COMPLAINS OF BILATERAL HIP PAIN THAT IS CHRONIC WITH EXACERBATION TODAY. PT STATES DIFFICULTY AMBULATING, USES WALKER. PT AOX4, BREATHING EVEN AND UNLABORED, SKIN WARM AND DRY. BED IN LOWEST POSITION, LOCKED, BED RAIL UPX1. PMH - DENIES ALLERGIES - NKA
[2021-04-21] MEDS ORDERED: HYDR-5080 PO (09:37)
[2021-04-21 09:52] VITALS: BP 174/81
== END 2021-04-21 09:51 | disposition home or self-care (01) ==
LOC: MED 08:24
DX: M16.0 Bilateral primary osteoarthritis of hip (principal); G89.29 Other chronic pain; I10 Essential (primary) hypertension; Z79.82 Long term (current) use of aspirin; Z79.899 Other long term (current) drug therapy
CPT/HCPCS: 73521; 96372; 99283; J1885

== ENCOUNTER 2021-05-19 08:20 | Emergency (ER) | payer OTHER ==
[~2021-05-19] VITALS: Ht 170.2 cm; Wt 65.3 kg
[~2021-05-19 08:20] MED LIST changes: +HYDR-5080 PO
[2021-05-19 08:27] VITALS: BP 184/109
--- NOTE | 2021-05-19 08:44 | NUR ---
71 Y/O FEMALE C/O R SIDED PELVIC PAIN X 1 WEEK. PT STATES THAT THE PAIN HAS BEEN UNRELIEVED WITH PAIN MEDS FROM PAIN MANAGEMENT DR. PT STATES SHE IS NOT ABLE TO SEE AN ORTHROPEDIC D/T INSURANCE AND LACK OF REFERRAL. PT RATES PAIN 10/10 THAT SHE DESCRIBES CRUSHING AND "BONE ON BONE". PT DENIES TAKING ANYTHING FOR PAIN TODAY. PT AMBULATES WITH WALKER AND PAIN IS WORSE WITH AMBULATION. PT A/O X4 WITH EVEN AND UNLABORED RESPIRATIONS. PMH - HTN, ARTHRITIS NKDA
--- NOTE | 2021-05-19 08:45 | NUR ---
DR BEST AT BEDSIDE EVALUATING PT
[2021-05-19] MEDS ORDERED: ACET-8386 PO (08:48)
[2021-05-19] MEDS ORDERED: HYDROcodone/APAP 10/325 MG 1 TAB TAB PO ONE (08:50)
[2021-05-19] MEDS ORDERED: KETOROLAC 30 MG/ML VIAL IM ONE (08:50)
--- NOTE | 2021-05-19 09:35 | NUR ---
Patient discharged with v/s stable. Written and verbal after care instructions ABOUT ARTHRITIS given and explained. Patient alert, oriented and verbalized understanding of instructions. Ambulatory with steady gait. All questions addressed prior to discharge. ID band removed. Patient advised to follow up with PMD. Rx of NORCO 5-325MG given. Patient educated on indication of medication including possible reaction and side effects. Opportunity to ask questions provided and answered.
== END 2021-05-19 09:35 | disposition home or self-care (01) ==
LOC: MED 08:20
DX: G89.29 Other chronic pain (principal); M25.551 Pain in right hip; M25.552 Pain in left hip
CPT/HCPCS: 96372; 99283; J1885

== ENCOUNTER 2021-05-28 08:27 | Emergency (ER) | payer OTHER ==
[~2021-05-28] VITALS: Ht 170.2 cm; Wt 65.3 kg
[2021-05-28 08:32] VITALS: BP 149/89
--- NOTE | 2021-05-28 08:44 | NUR ---
Patient wheelchair assisted to bed 6.
[2021-05-28] MEDS ORDERED: KETOROLAC 60 MG/2 ML VIAL IM ONE (09:10)
[2021-05-28] MEDS ORDERED: NAPR-1704 PO (09:23)
--- NOTE | 2021-05-28 09:52 | NUR ---
71 Y/O FEMALE BIB SELF WITH C/P OF BILAT PELVIC PAIN X8 YEARS. STATES THAT THE PAIN WORSENED OVER THE LAST 3 DAYS WITH A 10/10 STABBING LIKE PAIN THAT RADIATES TO HER THIGHS. PT ALSO STATES THAT THE PAIN IS DUE TO HER ARTHRITIS WHICH HAS BEEN UNRELIEVED BY THE NORCO PERSCRIBED. DID NOT TAKE HER NORCO TODAY. PMHX: ARTHRITIS, HTN NKDA
[2021-05-28 09:55] VITALS: BP 149/89
== END 2021-05-28 09:55 | disposition home or self-care (01) ==
LOC: MED 08:27
DX: G89.29 Other chronic pain (principal); M25.551 Pain in right hip; M25.552 Pain in left hip; I10 Essential (primary) hypertension; Z79.899 Other long term (current) drug therapy; Z79.82 Long term (current) use of aspirin
CPT/HCPCS: 96372; 99283; J1885

== ENCOUNTER 2021-07-06 03:09 | Emergency (ER) | payer OTHER ==
[~2021-07-06] VITALS: Ht 170.2 cm; Wt 65.3 kg
[~2021-07-06 03:09] MED LIST changes: +NAPR-1704 PO
[2021-07-06 03:33] VITALS: BP 183/89
--- NOTE | 2021-07-06 03:36 | NUR ---
TO BED VIA WHEELCHAIR
[2021-07-06 04:00] LABS: BASOPHILS # (AUTO) 0.1 K/uL (0.00-0.22); BASOPHILS % (AUTO) 0.6 % (0.0-2.0); EOSINOPHILS # (AUTO) 0.2 K/uL (0-0.4); EOSINOPHILS % (AUTO) 2.5 % (0.0-4.0); HEMATOCRIT 35.9 % (36-48); HEMOGLOBIN 11.6 g/dL (12.0-16.0); LYMPHOCYTES # (AUTO) 1.1 K/uL (2.5-16.5); LYMPHOCYTES % (AUTO) 12.2 % (20.5-51.1); MEAN CORPUSCULAR HEMOGLOBIN 29 pg (27-31); MEAN CORPUSCULAR HGB CONC 32 g/dL (33-37); MEAN CORPUSCULAR VOLUME 90.9 fL (80-94); MONOCYTES # (AUTO) 0.3 K/uL (0.8-1.0); MONOCYTES % (AUTO) 3.6 % (1.7-9.3); NEUTROPHILS # (AUTO) 7.1 K/uL (1.8-7.7); NEUTROPHILS % (AUTO) 81.1 % (42.2-75.2); PLATELET COUNT (AUTO) 399 K/uL (140-450); RED BLOOD CELL COUNT(AUTO) 3.95 MIL/uL (4.20-5.40); RED CELL DISTRIBUTION WIDTH 14.9 % (11.6-13.7); WHITE BLOOD COUNT (AUTO) 8.7 K/uL (4.8-10.8)
[2021-07-06 04:14] LABS: ANION GAP 12.5 (8-16); ASPARTATE AMINOTRANSFERASE 14 U/L (15-37); CARBON DIOXIDE 28.3 mmol/L (21-32); CHLORIDE 103 mmol/L (98-107); CREATININE 1.8 mg/dL (0.6-1.3); GLUCOSE 166 mg/dL (74-106); LIPASE 45 U/L (73-393); POTASSIUM 3.8 mmol/L (3.5-5.1); SODIUM SERUM 140 mmol/L (136-145); TOTAL BILIRUBIN 0.4 mg/dL (0.0-1.0); UREA NITROGEN, BLOOD 26 mg/dL (7-18)
[2021-07-06] MEDS ORDERED: MORPHINE SULFATE 4 MG/ML SYR IVP ONE ×2 (04:55→06:25)
--- NOTE | 2021-07-06 05:01 | NUR ---
FIRST CONTACT WITH PT. TO CT VIA W/C
--- NOTE | 2021-07-06 05:09 | NUR ---
RETURNED FROM CT
--- NOTE | 2021-07-06 05:10 | NUR ---
RECEIVED IN BED 10 WITH C/O GENERALIZED ABDOMINAL PAIN RATED 10/10. PT IS MOANING WITH MUCH FACIAL GRIMACING. IV NOTED LEFT A/C. MEDICATED ORDERED.
--- NOTE | 2021-07-06 05:30 | NUR ---
LABS DRAWN AND SENT TO LAB
--- NOTE | 2021-07-06 06:20 | NUR ---
ambulated TO BR FOR UA. UA SENT TO LAB
[2021-07-06 07:11] LABS: APPEARANCE,URINE CLEAR (CLEAR); BILIRUBIN,URINE NEGATIVE (NEGATIVE); BLOOD, URINE NEGATIVE (NEGATIVE); COLOR,URINE YELLOW (YELLOW); LEUKOCYTE ESTERASE ,URINE NEGATIVE (NEGATIVE); NITRITE, URINE NEGATIVE (NEGATIVE); PH,URINE 6.5 (5.0-9.0); UGLUCOSE NEGATIVE (NEGATIVE)
[2021-07-06 07:15] LABS: RBC,URINE 0-5 /HPF (0-5); WBC,URINE 0-5 /HPF (0-5)
--- NOTE | 2021-07-06 07:15 | NUR ---
REPORT RECEIVED FROM GABE SHANKAR FOR CONTINUITY OF CARE
--- NOTE | 2021-07-06 08:10 | NUR ---
ATTEMPTED TO INSERT NGT, PT HAD [address] MCCAULYE HOLD ORDERS FOR NGT INSERTION AT THIS TIME.
--- NOTE | 2021-07-06 09:17 | NUR ---
YAHAIRA SWAB COLLECTED AND SENT TO LAB
--- NOTE | 2021-07-06 09:42 | NUR ---
BP 197/95. DR MCCAULEY MADE AWARE, NO ORDERS GIVEN.
--- NOTE | 2021-07-06 10:00 | NUR ---
called [facility] to give report, stated will call back. ER phone number provided.
[2021-07-06 10:15] VITALS: BP 197/95
--- NOTE | 2021-07-06 10:15 | NUR ---
Patient to be transferred to [facility]. Is being transferred due to INSURANCE. Receiving facility has accepting physician and available space. ER physician has signed transfer form. Patient or responsible constitution party has agreed to transfer and signed form. Patient belongings inventoried and will be sent with patient. Copy of nursing notes, lab reports, EKG, Physicians Orders and X-rays to be sent with patient. Report called to OZIEL SHANKAR at receiving facility. [facility] ambulance service has been called for transfer. ETA is 10 MIN.
== END 2021-07-06 10:15 | disposition short-term general hospital (02) ==
LOC: MED 03:09
DX: K56.699 Other intestinal obstruction unspecified as to partial versus complete obstruction (principal); Z20.822 Contact with and (suspected) exposure to COVID-19; I10 Essential (primary) hypertension; Z79.899 Other long term (current) drug therapy; Z79.82 Long term (current) use of aspirin
CPT/HCPCS: 36415; 74176; 80053; 81001; 83690; 85025; 87426; 93005; 96374; 96375; 99285; J2270

== ENCOUNTER 2021-08-13 08:44 | Emergency (ER) | payer OTHER ==
[~2021-08-13] VITALS: Ht 170.2 cm; Wt 68.0 kg
[2021-08-13 08:49] VITALS: BP 185/106
--- NOTE | 2021-08-13 08:49 | NUR ---
BIBA TO BED 10.
[2021-08-13] MEDS ORDERED: KETOROLAC 30 MG/ML VIAL IM ONE (09:20)
--- NOTE | 2021-08-13 09:49 | NUR ---
71/F BIBA WITH C/O ALOC. PATIENT STATES SHE HAS BEEN SUFFERING FROM CHRONIC HIP PAIN, STATING PAIN HAS BEEN RADIATING TO HER BOTTOM. PATIENT NOT ANSWERING QUESTIONS CLEARLY FAR HOW LONG SHE HAS BEEN HAVING PAIN OR WHETHER SHE HAS TAKEN MEDICATION FOR PAIN. PATIENT REPORTS PAIN RELIEVES SOMEWHAT WHEN SHE MOVES HER LEG. DENIES CP, SOB, CHILLS.
[2021-08-13] MEDS ORDERED: LIDOCAINE 5% 1 EA PATCH TP SCH (10:35)
[2021-08-13] MEDS ORDERED: MORPHINE SULFATE 4 MG/ML SYR IM ONE (11:05)
[2021-08-13 12:12] VITALS: BP 147/101
--- NOTE | 2021-08-13 12:14 | NUR ---
Patient discharged with v/s stable. Written and verbal after care instructions given and explained. Patient verbalized understanding. Ambulatory with steady gait. All questions addressed prior to discharge. Advised to follow up with PMD.
--- NOTE | 2021-08-13 12:25 | NUR ---
S/W DONTRELL , PATIENT "ISACC" STATES SHE WILL BE HERE IN 30 MINUTES TO PICK PATIENT UP.
== END 2021-08-13 12:12 | disposition home or self-care (01) ==
LOC: MED 08:44
DX: G89.29 Other chronic pain (principal); M25.551 Pain in right hip; I10 Essential (primary) hypertension; Z79.899 Other long term (current) drug therapy
CPT/HCPCS: 96372; 99285; J1885; J2270

== ENCOUNTER 2022-12-28 10:14 | Emergency (ER) | payer OTHER ==
[~2022-12-28] VITALS: Ht 170.2 cm; Wt 70.8 kg
[~2022-12-28 10:14] MED LIST changes: -ACET-8386 PO; +ACET-8905 PO; -SIME80TA22 PO; +SIME80TA41 PO
[2022-12-28 10:21] VITALS: BP 176/74
--- NOTE | 2022-12-28 11:00 | NUR ---
C/O RIGHT EYELID SWELLING AND [id number], DENIES ANY CHEMICAL AND PHYSICAL INJURY, PER PT NOTED YELLOWISH DISCHARGE THIS MORNING NKA PMH: HTN RX: NO MEDS TODAY
--- NOTE | 2022-12-28 11:54 | NUR ---
Patient discharged with v/s stable. Written and verbal after care instructions ABOUT STYE given and explained. Patient verbalized understanding. Ambulatory with steady gait. All questions addressed prior to discharge. Advised to follow up with PMD.
== END 2022-12-28 11:54 | disposition home or self-care (01) ==
LOC: MED 10:14
DX: H00.011 Hordeolum externum right upper eyelid (principal); I10 Essential (primary) hypertension; Z79.899 Other long term (current) drug therapy
CPT/HCPCS: 99281